=== PATIENT | female | born 1980 | race Caucasian/White ===

== ENCOUNTER 2017-09-05 07:02 | Emergency (ER) | payer BC ==
[2017-09-05] MEDS ORDERED: Ondansetron 4 MG/2 ML SDV IV ONE (07:03)
[2017-09-05] MEDS ORDERED: Midazolam 1 MG/ML 2 ML SDV IV ONE (07:03)
[2017-09-05] MEDS ORDERED: Propofol 200 MG/20 ML SDV IV ONE (07:03)
[2017-09-05] MEDS ORDERED: Dexamethasone 4 MG/ML SDV IV ONE (07:03)
[2017-09-05] MEDS ORDERED: Lidocaine 2% 20 ML MDV INJECT ONE (07:03)
[2017-09-05] MEDS ORDERED: fentaNYL 100 MCG/2 ML SDV IV ONE (07:03)
[2017-09-05] MEDS ORDERED: Sodium Chloride 0.9% 1,000 ML IV ONE (07:35)
[2017-09-05 07:54] LABS: CHLORIDE,CL 105 mmol/L (101-111); SODIUM,NA 138 mmol/L (135-145)
--- NOTE | 2017-09-05 07:58 | EDM.PDOC ---
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 The patient reports a OB history of . The patient reports she had a miscarriage in the middle of July, saw Dr. Salas 2 weeks ago (everything was fine) and started to have increased bleeding and symptoms at about midnight. Onset: Today Duration: Constant Location: Reports: Abdomen (cramping and vaginal bleeding) Quality: Reports: Ache, Dull Severity: Moderate Improves with: Reports: None Worsens with: Reports: None Context: Reports: Other Associated Symptoms: Reports: No Other Symptoms - Related Data Allergies Allergy/AdvReac Type Severity Reaction Status Date / Time No Known Allergies Allergy Verified 06/09/15 17:02 Home Meds: Home Meds FLUoxetine HCl [Fluoxetine HCl] 20 mg PO DAILY 06/09/15 [History] ClonazePAM [KlonoPIN] 2.5 mg PO DAILY 09/05/17 [History] Sertraline HCl [Sertraline HCl] 100 mg PO DAILY 09/05/17 [History] traZODone HCl [Trazodone HCl] 100 mg PO DAILY 09/05/17 [History] Past Medical History HEENT History: Reports: Impaired Vision CLOCK SMITH History: Reports: , Spontaneous Psychiatric History: Reports: Depression - Past Surgical History HEENT Surgical History: Reports: Myringotomy w Tube(s) Social & Family History - Family History Family Medical History: Noncontributory Cardiac: Reports: Hypertension - Tobacco Use Smoking Status *Q: Never Smoker Second Hand Smoke Exposure: No - Caffeine Use Caffeine Use: Reports: Coffee, Soda - Recreational Drug Use Recreational Drug Use: No ED ROS GENERAL - Review of Systems Review Of Systems: ROS reveals no pertinent complaints other than HPI. ED EXAM, GI/ABD - Physical Exam Exam: See Below Exam Limited By: No Limitations General Appearance: Alert, WD/WN, Moderate Distress, Thin Eyes: Bilateral: Normal Appearance, EOMI Ears: Normal External Exam, Normal Canal, Hearing Grossly Normal, Normal TMs Nose: Normal Inspection, Normal Mucosa, No Blood Throat/Mouth: Normal Inspection, Normal Lips, Normal Teeth, Normal Gums, Normal Oropharynx, Normal Voice, No Airway Compromise Head: Atraumatic, Normocephalic Neck: Normal Inspection, Supple, Non-Tender, Full Range of Motion Respiratory/Chest: No Respiratory Distress, Lungs Clear, Normal Breath Sounds, No Accessory Muscle Use, Chest Non-Tender Cardiovascular: Normal Peripheral Pulses, Regular Rate, Rhythm, No Edema, No Gallop, No JVD, No Murmur, No Rub, Other (lower abdominal cramping) GI/Abdominal Exam: Normal Bowel Sounds, Soft, Tender (lower abdomen) (Female) Exam: Deferred Rectal (Female) Exam: Deferred Back Exam: Normal Inspection, Full Range of Motion, NT Extremities: Normal Inspection, Normal Range of Motion, Non-Tender, Normal Capillary Refill, No Pedal Edema Neurological: Alert, Oriented, CN II-XII Intact, Normal Cognition, Normal Gait, Normal Reflexes, No Motor/Sensory Deficits Psychiatric: Normal Affect, Normal Mood Skin Exam: Warm, Dry, Intact, No Rash, Pallor Lymphatic: No Adenopathy Course - Vital Signs Last Recorded V/S: Last Vital Signs Temp 36.2 C 09/05/17 07:17 Pulse 91 09/05/17 07:17 Resp 16 09/05/17 07:17 BP 99/65 09/05/17 07:17 Pulse Ox 100 09/05/17 07:17 - Orders/Labs/Meds Orders: Active Orders 24 hr Category Date Time Status OB Transvaginal [US] Urgent Exams 09/05/17 08:21 Ordered UA W/MICROSCOPIC [URIN] Stat Lab 09/05/17 07:24 Uncollected Labs: Laboratory Tests 09/05/17 09/05/17 09/05/17 Range/Units 07:29 07:29 07:29 WBC 9.8 (5.0-10.0) 10^3/uL RBC 3.20 L (4.2-5.4) 10^6/uL Hgb 7.4 L D (12.0-16.0) g/dL Hct 24.2 L (37.0-47.0) % MCV 75.6 L D (80-100) fL MCH 23.1 L (27.0-34.0) pg MCHC 30.6 L (33.0-35.0) g/dL Plt Count 234 (150-450) 10^3/uL Neut % (Auto) 77.5 H (42.2-75.2) % Lymph % (Auto) 16.0 L (20.5-50.1) % [place] % (Auto) 4.7 (2-8) % Eos % (Auto) 1.4 (1.0-3.0) % Baso % (Auto) 0.4 (0.0-1.0) % Sodium 138 (135-145) mmol/L Potassium 3.1 L (3.6-5.0) mmol/L Chloride 105 (101-111) mmol/L Carbon Dioxide 22.0 (21.0-31.0) mmol/L Anion Gap 14.1 BUN 8 (7-18) mg/dL Creatinine 0.6 (0.6-1.3) mg/dL Est Cr Clr Drug Dosing 107.23 mL/min Estimated GFR (MDRD) > 60 BUN/Creatinine Ratio 13.33 Glucose 136 H (74-105) mg/dL Calcium 8.3 L (8.4-10.2) mg/dl Total Bilirubin 0.2 (0.2-1.0) mg/dL AST 26 (10-42) IU/L ALT 18 (10-60) IU/L Alkaline Phosphatase 84 (42-121) IU/L Total Protein 6.4 L (6.7-8.2) g/dl Albumin 3.7 (3.2-5.5) g/dl Globulin 2.7 Albumin/Globulin Ratio 1.37 HCG, Quant 189 H (0-25) mIU/ml Beta HCG, Quant < 1050 mIU/ml Meds: Medications Discontinued Medications Generic Name Dose Route Start Last Admin Trade Name Freq PRN Reason Stop Dose Admin Sodium Chloride 1,000 mls @ 999 mls/hr 09/05/17 07:35 09/05/17 07:39 Normal Saline IV 09/05/17 08:35 999 mls/hr .BOLUS ONE Administration Departure - Departure Time of Disposition: 09:55 Disposition: Admitted As Inpatient 66 Condition: Fair Clinical Impression: Miscarriage, Retained products of conception - Discharge Information Care Plan Goals: Discussed the history, symptoms, lab results and ultrasound results with Dr. Logan. Dr. Logan accepted the patient for continued evaluation and further care. - My Orders Last 24 Hours: My Active Orders 09/05/17 07:24 UA W/MICROSCOPIC [URIN] Stat 09/05/17 08:21 OB Transvaginal [US] Urgent - Assessment/Plan Last 24 Hours: My Active Orders 09/05/17 07:24 UA W/MICROSCOPIC [URIN] Stat 09/05/17 08:21 OB Transvaginal [US] Urgent
--- NOTE | 2017-09-05 09:27 | US ---
Clinical history: 36-year-old female with one-month of severe bleeding ("one pad per hour" ) and hemoglobin of 7. Interpretation: Abnormal. *Midline and upper uterus posteriorly is inhomogeneously dense with relatively avascular "mass" like density that most probably represents retained products of conception (necrotic myometrial fibroid le chapis effacing the underlying endometrium is a remote differential consideration). CT or MRI may provi de additional information and more optimally defined this uterine abnormality. Normal central endometrial "stripe" lower half of the uterus and no fluid in the endometrial canal. No sign of other myometrial mass or fibroid lesion. No abnormal adnexal mass lesions or free fluid in the cul-de-sac. Normal left ovary measures 1.16 x 1.78 x 1.81 cm. Normal right ovary measures 1.68 x 1.98 x 1.93 cm.
[2017-09-05] MEDS ORDERED: Sodium Chloride 0.9% 1,000 ML IV SCH (10:15)
[2017-09-05] MEDS ORDERED: Ferric Subsulfate Topical Soln 8 GM (8 ML) Bottle ONE (10:49)
[2017-09-05] MEDS ORDERED: Silver Nitrate Applicator Each ONE (10:49)
[2017-09-05] MEDS ORDERED: Lactated Ringers 1,000 ML IV SCH (11:15)
[2017-09-05] MEDS ORDERED: Acetaminophen/HYDROcodone 325-5 MG Tab PO PRN (11:58)
--- NOTE | 2017-09-05 15:32 | OR ---
DATE: 09/05/2017 PREOPERATIVE DIAGNOSES: This is an individual, status post Cytotec-induced miscarriage approximately a month and a half ago, now with retained products of conception. POSTOPERATIVE DIAGNOSES: This is an individual, status post Cytotec-induced miscarriage approximately a month and a half ago, now with retained products of conception. PROCEDURE: Suction dilatation and curettage. ANESTHESIA: General. FINDINGS: There were products of conception found. PATHOLOGY: Products of conception. ESTIMATED BLOOD LOSS: 100 mL. The patient was also given 1 unit of packed red blood cells. PROCEDURE IN DETAIL: The patient presented to the emergency room with heavy vaginal bleeding. She is found to have positive beta-hCG a month and a half out from her Cytotec-induced miscarriage. Then, she also had a hemoglobin of 7.4. She was quite symptomatic. She did consent to suction D and C when ultrasound looked suspicious for retained products of conception. She was taken to the operating room where she was prepped and draped in the normal sterile fashion with her legs in the Miguel A stirrups. The weighted speculum was placed in the vagina. Cervix was grasped with a tenaculum. The cervix was already dilated, and there was some bleeding. Therefore, the curette was then used, and immediately, a small piece of placenta was removed that was sent to Pathology. The 10 mm curved suction was then placed, and the uterine contents were suctioned out without any difficulty. Curette was used one more time to create a gritty texture to the entire endometrium. At that point in time, there was no more vaginal bleeding. Single-tooth tenaculum was removed. Weighted speculum was removed. All sponge, lap, and needle counts were correct x2. The patient had started to be transfused the 1 unit packed red blood cells. She was taken to the recovery room in stable condition. [facility] /[id number] ZOË
[2017-09-05 15:35] VITALS: BP 107/58
--- NOTE | 2017-09-07 09:10 | HP ---
This is a preoperative H and P for a procedure planned on 09/05/2017. HISTORY OF PRESENT ILLNESS: The patient is a 36-year-old, G8, P6 who unfortunately did have an early second trimester loss and on 07/22/2017, did undergo Cytotec induction on Labor and delivery in [place]. The baby was roughly 14-15 weeks gestational age. The Cytotec induction went well. Chromosomes were 46 XX, pathology did show placenta. The patient's hemoglobin in [place] had gone from 11.8 pre delivery to 10.1. The patient's blood type is O positive. I last saw this patient on 08/05/2017, when we did screen her for depression because she has had a severe episode of that previously. She was just having some discharge. Cervix was closed, thick, and high. No bleeding. In the end of July, she did have some bleeding started up again and then 3 weeks ago had an episode of heavy bleeding and did see Dr. Salas. Dr. Salas's exam was completely benign. Again cervix closed, thick, and high. Therefore she was just counseled to observe, but then last night, had very heavy bleeding again. REVIEW OF SYSTEMS: The patient is feeling weak and is also having near syncopal episodes which her also collaborates with too. OBSTETRICAL HISTORY: She has had 6 vaginal deliveries and 2 miscarriages. The first did not need a D and C, and then the second was this early second trimester loss needing Cytotec. PAST MEDICAL HISTORY: Negative except for the depression. PAST SURGICAL HISTORY: She just had ear surgery. ALLERGIES: The patient has no known drug allergies. SOCIAL HISTORY: The patient does not smoke. The patient last ate roughly at 7:00 or 8:00 last night. PHYSICAL EXAMINATION: Vital Signs: Patient's temp 36.2, heart rate 91, blood pressure 99/65, respiratory rate 16, and O2 sat 100%. The patient's hemoglobin this morning was 7.4. She does feel pale and looks weak. Beta HCG is still elevated at 189. She is still having vaginal bleeding, which makes exam difficult. The ultrasound was performed and our radiologist is pretty confident that there are retained products of conception. ASSESSMENT/PLAN: A 36-year-old, 8 para 6 status post Cytotec induction the first part of July now with heavy vaginal bleeding causing severe anemia and an ultrasound consistent with retained products of conception. Therefore consents were signed and orders were written to perform a suction D and C, as well as to give her 1 unit of packed red blood cells. I would give her that unit just due to her near syncopal episodes and the fact that we will likely have more blood loss in the operating room, and she did consent to that. We will proceed with that this morning. [facility] /[id number] MTDD
== END 2017-09-05 14:55 | disposition critical access hospital (66) ==
LOC: DL.SDS 07:02 → DL.MS 11:13
DX: O03.1 Delayed or excessive hemorrhage following incomplete spontaneous abortion (principal); D50.0 Iron deficiency anemia secondary to blood loss (chronic); Z79.899 Other long term (current) drug therapy
CPT/HCPCS: 36415; 36430; 59812; 76815; 80053; 81001; 84702; 85025; 86850; 86900; 86901; 86920; 86922; 96360; 96361; 99285; J1100; J2250; J2405; J2704; J3010; J7030; J7120; P9016

== ENCOUNTER 2018-07-16 08:05 | Day surgery (SDC) | payer BC, MEDICAID ==
[~2018-07-16 08:05] MED LIST: Lactated Ringers 1,000 ML IV SCH; Misoprostol 400 MCG (4 X 100 MCG TAB) ONE; Silver Nitrate Applicator Each ONE; Sodium Chloride 0.9% 10 ML Syringe FLUSH PRN
[2018-07-16] MEDS ORDERED: Dexamethasone 4 MG/ML SDV IV ONE (08:06)
[2018-07-16] MEDS ORDERED: Propofol 200 MG/20 ML SDV IV ONE (08:06)
[2018-07-16] MEDS ORDERED: Glycopyrrolate 0.2 MG/ML 2 ML SDV IV ONE (08:06)
[2018-07-16] MEDS ORDERED: Midazolam 1 MG/ML 2 ML SDV IV ONE (08:06)
[2018-07-16] MEDS ORDERED: Ondansetron 4 MG/2 ML SDV IV ONE (08:06)
[2018-07-16] MEDS ORDERED: Ketorolac 30 MG/ML SDV IVPUSH ONE (08:06)
[2018-07-16] MEDS ORDERED: fentaNYL 100 MCG/2 ML SDV IV ONE (08:06)
[2018-07-16] MEDS ORDERED: Misoprostol 400 MCG (4 X 100 MCG TAB) RECTAL SCH (09:00)
--- NOTE | 2018-07-16 13:19 | OR ---
DATE: 07/16/2018 PREOPERATIVE DIAGNOSES: 1. First trimester incomplete miscarriage with retained products of conception/intrauterine demise. 2. Blood type O positive. 3. A 37-year-old, 9, para 6-0-2-6. 4. History of depression, anxiety, and dissociative disorder. 5. Prior history of blood transfusion. 6. Known retroverted uterus. POSTOPERATIVE DIAGNOSES: 1. First trimester incomplete miscarriage with retained products of conception/intrauterine demise. 2. Blood type O positive. 3. A 37-year-old, 9, para 6-0-2-6. 4. History of depression, anxiety, and dissociative disorder. 5. Prior history of blood transfusion. 6. Known retroverted uterus. PROCEDURE: Dilation and curettage with sharp and suction curettage. FINDINGS: This delightful 37-year-old, 9, para 6-0-2-6, presented to the OR as scheduled for D and C for intrauterine demise/incomplete SAB with retained products of conception, requesting D and C. She underwent general anesthesia and was prepped and draped in the usual sterile manner. A catheter was used to empty her bladder of 100 mL clear urine. A time-out was performed. Bimanual exam showed uterus to be approximately 8-10 week size and retroverted. The weighted speculum and anterior vaginal retractor used, but we were unable to visualize the cervix well due to the position of her uterus, therefore, a large speculum was used instead which gave us excellent visualization of her cervix. The anterior lip was grasped with a single-tooth tenaculum. Uterine sound was then used and reaching 11 cm. The largest Hegar dilator was used and easily entered through the cervical os. The #10 curved curette suction tip was then placed without difficulty and suction curettage was carried out until the banks of the uterus appeared clean and the contents of the uterus emptied. Sharp curette was then used and confirmed that the banks of the uterus appeared to be completely empty and clear of any remaining products of conception or debris. The uterus appeared firm. The patient had no bleeding at this time. Uterine sound was passed and was now 10 cm. The patient appeared to tolerate the procedure well and her estimated blood loss was 100 mL. There were no intraoperative complications. Specimen was sent to pathology. The patient was awakened and transferred to the recovery room in good condition. [facility] /[id number]
[2018-07-16 14:17] VITALS: BP 106/70
[2018-07-17] MEDS ORDERED: CHOLECALCIFEROL 5000 UNIT PO SCH (09:00)
[2018-07-17] MEDS ORDERED: Sertraline 50 MG Tab PO SCH (09:00)
[2018-07-17] MEDS ORDERED: FLUoxetine 10 MG Cap PO SCH (09:00)
[2018-07-17] MEDS ORDERED: Prenatal Multivitamin with Calcium/Folic Acid/Iron Tab PO SCH (09:00)
[2018-07-17] MEDS ORDERED: ClonazePAM 0.5 MG Tab PO SCH (09:00)
== END 2018-07-16 12:18 | disposition home or self-care (01) ==
LOC: DL.SDS 08:05
PROVIDERS: ATTEND Family Medicine
DX: O03.4 Incomplete spontaneous abortion without complication (principal); F44.9 Dissociative and conversion disorder, unspecified; F41.8 Other specified anxiety disorders; Z79.899 Other long term (current) drug therapy
CPT/HCPCS: 36415; 59812; 85027; 86850; 86900; 86901; J1100; J1885; J2250; J2405; J2704; J3010; J3490; J7050; J7120

== ENCOUNTER 2021-01-25 06:01 | Day surgery (SDC) | payer OTHER ==
[~2021-01-25 06:01] MED LIST changes: +Dextrose 5%-0.45% NaCl 1,000 ML IV SCH; -Lactated Ringers 1,000 ML IV SCH; -Misoprostol 400 MCG (4 X 100 MCG TAB) ONE; -Silver Nitrate Applicator Each ONE
[2021-01-25] MEDS ORDERED: fentaNYL 100 MCG/2 ML SDV IV ONE ×3 (06:02→07:04)
[2021-01-25] MEDS ORDERED: Midazolam 1 MG/ML 2 ML SDV IV ONE ×3 (06:02→07:05)
[2021-01-25] MEDS ORDERED: Midazolam 1 MG/ML 2 ML SDV ONE (06:19)
[2021-01-25] MEDS ORDERED: fentaNYL 100 MCG/2 ML SDV ONE (06:19)
--- NOTE | 2021-01-25 08:05 | OR ---
DATE: 01/25/2021 PROCEDURE: Esophagogastroduodenoscopy and multiple pinch biopsies. INSTRUMENT USED: [id number]-[id number] Olympus video panendoscope. PREMEDICATIONS: No oral or topical anesthesia used. Fentanyl 100 mcg intravenous, Versed 3 mg intravenous. The procedure was done under pulse oximetry, BP recording, and engine monitor. INDICATION: The patient with eating disorder, having persistent throat discomfort, unexplained and not responsive to medical measures, on PPI. Recent barium esophagogram showing prominent fold at thoracic inlet. Esophagogastroduodenoscopy is performed for detection of any active erosive lesions, Jones esophagus and/or malignancy also under consideration. Biopsies to be obtained for eosinophilic esophagitis if indicated, H. pylori status to be determined, endoscopic hemostasis therapy if needed. The scope was passed with ease. Adequate visualization of the esophagus was made from proximal to distal areas. No upper esophageal lesions identified. No distal esophageal stricture. No uphill or downhill esophageal varices. No Laura-Bajwa tear. No evidence of erosive esophagitis by [place] criteria. No esophageal polyp or tumor mass identified. Z-line was seen at around 39 cm distal to the oral verge. No proximal gastric varices noted. Gastric fundus examination by retroflexion showed no polypoid lesions. No gastric ulcer, malignant mass, or vascular ectasia identified. Duodenal bulb showed no ulcer. Visualized second part of the duodenum was unremarkable. Multiple pinch biopsies were taken from the gastric antrum and proximal body and sent for PyloriTek test for H. pylori and histopathology. Four-quadrant biopsies were obtained from the distal and proximal esophagus and sent for any histopathologic evidence of eosinophilic esophagitis. No bleeding was noted from any of the visualized areas at the completion of examination. Photographs were taken of the duodenal bulb, gastric antrum, fundus, and distal esophagus. IMPRESSION: Normal study. The patient tolerated the procedure well. [facility] /[id number]
[2021-01-25 09:32] VITALS: BP 100/54; PULSE 70
== END 2021-01-25 09:16 | disposition home or self-care (01) ==
LOC: DL.ENDO 06:01
PROVIDERS: ATTEND Internal Medicine Gastroenterology
DX: K29.50 Unspecified chronic gastritis without bleeding (principal); K31.89 Other diseases of stomach and duodenum; F50.9 Eating disorder, unspecified; F41.1 Generalized anxiety disorder; Z88.8 Allergy status to other drugs, medicaments and biological substances; Z98.890 Other specified postprocedural states
CPT/HCPCS: 87077; J2250; J3010; J7042